=== PATIENT | male | born 1990 | race Caucasian/White ===

== ENCOUNTER 2021-07-19 09:17 | Emergency (ER) | payer BC ==
[2021-07-19 09:49] LABS: HEMOGLOBIN 16.6 gm/dl (14.0-17.5); RED BLOOD COUNT 5.24 M/UL (4.20-5.50)
[2021-07-19 10:09] LABS: BUN/CREATININE RATIO 14 (0-10)
[2021-07-19 10:16] LABS: WHITE BLOOD COUNT 8.2 K/UL (4.5-11.0)
[2021-07-19] MEDS ORDERED: ZOFRAN ODT 4 MG4 MG SL (11:09)
== END 2021-07-19 11:42 | disposition home or self-care (01) ==
LOC: ER1 09:17
PROVIDERS: Emergency Medicine
DX: E87.6 Hypokalemia (principal); R19.7 Diarrhea, unspecified
CPT/HCPCS: 80053; 83690; 85025; 96374; 99284; J2405; J7120